=== PATIENT | male | born 1950 | race Two or more races ===

== ENCOUNTER 2018-03-28 20:49 | Inpatient (IN) | payer MEDICARE, MEDICAID ==
[~2018-03-28] VITALS: Ht 165.1 cm; Wt 80.3 kg
--- NOTE | 2018-03-28 21:03 | NUR ---
PT BIBRA C/O SYNCOPE, DIZZINESS. PT FAMILY STATES "WAS SITTING ON THE COUCH AND HE PASSED OUT" PT ON MONITOR IN BED 8 WITH FAMILY AT BEDSIDE. PT AOX4. RESP EVEN AND UNLABORED. NAD NOTED. WILL CONTINUE TO MONITOR.
--- NOTE | 2018-03-28 21:24 | NUR ---
PHLEB AT BEDSIDE FOR LABDRAW
[2018-03-28 21:31] LABS: BASOPHILS # (AUTO) 0.1 /CMM (0.0-0.2); WHITE BLOOD COUNT (AUTO) 8.4 K/uL (4.3-11.0)
[2018-03-28 21:34] LABS: BASOPHILS % (AUTO) 1.4 % (0.0-2.0); EOSINOPHILS % (AUTO) 1.1 % (0.0-6.0); HEMATOCRIT 35 % (39-51); HEMOGLOBIN 11.3 g/dL (13.5-17.5); LYMPHOCYTES # (AUTO) 2.1 /CMM (0.8-4.8); LYMPHOCYTES % (AUTO) 24.8 % (20.0-44.0); MEAN CORPUSCULAR HGB CONC 32 g/dl (31.0-36.0); MEAN CORPUSCULAR VOLUME 66 fL (80-96); MONOCYTES # (AUTO) 0.7 /CMM (0.1-1.30); MONOCYTES % (AUTO) 8.5 % (2.0-12.0); NEUTROPHILS # (AUTO) 5.4 /CMM (1.8-8.9); NEUTROPHILS % (AUTO) 64.2 % (43.0-81.0); PLATELET COUNT (AUTO) 188 /CMM (150-450); RED BLOOD CELL COUNT(AUTO) 5.31 MIL/uL (4.5-6.0)
[2018-03-28 21:41] LABS: CALCIUM, SERUM 8.9 mg/dL (8.5-10.1); CARBON DIOXIDE 25 mmol/L (21-32); CHLORIDE 103 mmol/L (98-107); GLUCOSE 146 mg/dL (74-106); POTASSIUM 3.7 mmol/L (3.5-5.1); SODIUM SERUM 137 mmol/L (136-145); UREA NITROGEN, BLOOD 16 mg/dL (7-18)
--- NOTE | 2018-03-28 22:16 | NUR ---
FAMILY AT BEDSIDE
[2018-03-28] MEDS ORDERED: MECLIZINE HCL 12.5 MG TABLET ONE (22:29)
[2018-03-28] MEDS ORDERED: HYDROMORPHONE INJ 0.5 MG/0.5 ML SYRINGE ONE (22:29)
[2018-03-28] MEDS ORDERED: ONDANSETRON HCL/PF 4 MG/2 ML VIAL ONE (22:29)
[2018-03-28] MEDS ORDERED: HYDROMORPHONE INJ 2 MG/ML DISP.SYRIN IV ONE (22:30)
[2018-03-28] MEDS ORDERED: MECLIZINE HCL 12.5 MG TABLET PO ONE (22:30)
[2018-03-28] MEDS ORDERED: IV NS 0.9% 1,000 ML BAG IV ONE (22:30)
[2018-03-28] MEDS ORDERED: ONDANSETRON HCL/PF 4 MG/2 ML VIAL IVP ONE (22:30)
[2018-03-28 23:04] LABS: BASOPHILS % (MANUAL) 1 % (0.0-2.0); EOSINOPHILS % (MANUAL) 1 % (0-4); LYMPHOCYTES % (MANUAL) 34 % (16-48); MONOCYTES % (MANUAL) 4 % (0-11.0); NEUTROPHILS % (MANUAL) 60 (42-76)
--- NOTE | 2018-03-28 23:23 | NUR ---
BED 322-1
--- NOTE | 2018-03-28 23:30 | NUR ---
PT TAKEN TO RADIOLOGY VIA BARBARA
[2018-03-29] VITALS (8 sets, daily range): BP systolic 109–156; BP diastolic 60–82
--- NOTE | 2018-03-29 01:04 | NUR ---
REPORT GIVEN TO VANESSA CHRISTIAN FOR LUI
--- NOTE | 2018-03-29 01:33 | NUR ---
FACULTY PHYSICIAN NOTE RECEIVED PT IN STABLE CONDITION FROM ISAAC MENDEZ IN ER. PT ARRIVED VIA GURNEY. A&O X3-4 LATVIAN SPEAKING ONLY, AT BEDSIDE UNDERSTANDS SIMPLE UPPER SORBIAN. PT. SKIN IS INTACT. BELONGINGS ACCOUNTED AND SIGNED FOR. IV IN RAC PATENT AND INTACT INFUSING IVF ADEQUATELY. SAFETY PRECAUTIONS IN PLACE: BED, LOW-LOCKED POSITION, UPPER RAILS UP, BED ALARM ON AND CALL LIGHT WITHIN REACH. WILL CONT TO MONITOR.
[2018-03-29] MEDS ORDERED: ENOXAPARIN SODIUM 40 MG/0.4 ML DISP.SYRIN SQ SCH ×2 (02:30→21:00)
[2018-03-29] MEDS ORDERED: MAGNESIUM HYDROXIDE 30 ML UDC PO PRN (02:30)
[2018-03-29] MEDS ORDERED: ZOLPIDEM TARTRATE 5 MG TABLET PO PRN (02:30)
[2018-03-29] MEDS ORDERED: IV NS 0.9% 1,000 ML IV PRN (02:30)
[2018-03-29] MEDS ORDERED: ONDANSETRON HCL/PF 4 MG/2 ML VIAL IVP PRN (02:30)
[2018-03-29] MEDS ORDERED: HYDROCODONE/APAP 5/325MG 1 EACH TABLET PO PRN (02:30)
[2018-03-29] MEDS ORDERED: ACETAMINOPHEN 325 MG TABLET PO PRN (02:30)
[2018-03-29] MEDS ORDERED: Z GUARD REMEDY 2 OZ OINT TP PRN (02:30)
--- NOTE | 2018-03-29 06:18 | NUR ---
ROLLER SKATER NOTE PT IN STABLE CONDITION A&O X3-4 ESTONIAN SPEAKING ONLY, AT BEDSIDE UNDERSTANDS SIMPLE BULGARIAN. RAC PATENT AND INTACT INFUSING IVF ADEQUATELY. SAFETY PRECAUTIONS IN PLACE: BED, LOW-LOCKED POSITION, UPPER RAILS UP, BED ALARM ON AND CALL LIGHT WITHIN REACH. WILL CONT TO MONITOR AND ENDORSE TO NEXT SHIFT FOR LUI.
[2018-03-29 07:22] LABS: BASOPHILS # (AUTO) 0.1 /CMM (0.0-0.2); BASOPHILS % (AUTO) 0.7 % (0.0-2.0); EOSINOPHILS % (AUTO) 1.1 % (0.0-6.0); HEMATOCRIT 35 % (39-51); HEMOGLOBIN 11.1 g/dL (13.5-17.5); LYMPHOCYTES # (AUTO) 2.3 /CMM (0.8-4.8); LYMPHOCYTES % (AUTO) 29.1 % (20.0-44.0); MEAN CORPUSCULAR HGB CONC 32 g/dl (31.0-36.0); MEAN CORPUSCULAR VOLUME 66 fL (80-96); MONOCYTES # (AUTO) 0.8 /CMM (0.1-1.30); MONOCYTES % (AUTO) 10.3 % (2.0-12.0); NEUTROPHILS # (AUTO) 4.5 /CMM (1.8-8.9); NEUTROPHILS % (AUTO) 58.8 % (43.0-81.0); PLATELET COUNT (AUTO) 178 /CMM (150-450); RED BLOOD CELL COUNT(AUTO) 5.24 MIL/uL (4.5-6.0); WHITE BLOOD COUNT (AUTO) 7.7 K/uL (4.3-11.0)
[2018-03-29 07:44] LABS: CALCIUM, SERUM 8.8 mg/dL (8.5-10.1); CREATININE 0.9 mg/dL (0.6-1.3); MAGNESIUM 2.1 mg/dL (1.8-2.4); PHOSPHORUS 3.3 mg/dL (2.5-4.9); POTASSIUM 3.8 mmol/L (3.5-5.1)
[2018-03-29 08:01] LABS: IRON, SERUM 59 ug/dl (50-175); TOTAL IRON BINDING CAPACITY 245 ug/dl (250-450)
--- NOTE | 2018-03-29 08:01 | NUR ---
RN INITAL NOTES PT AWAKE AND ALERT WITH NAD. DENIES PAIN AND NO SOB. PT HAS NO SYNCOPAL EPISODES AT THIS TIME. SINUS SMITH ON THE MONITOR HR=47. IVF INFUSING WELL. AT BS AND SAFETY ENSURED. WILL MONITOR.
[2018-03-29] MEDS ORDERED: ATOR10TA PO (08:10)
[2018-03-29] MEDS ORDERED: LISI2.5T2 PO (08:10)
[2018-03-29] MEDS ORDERED: ASPI-1152 PO (08:10)
[2018-03-29] MEDS ORDERED: TAMS-12 PO (08:10)
--- NOTE | 2018-03-29 15:45 | NUR ---
rn notes pt seen by dr donnell sunshine with discharge to home order. no syncopal episodes noted; no c/o pain made. pt ambulated with steady gait; no dizziness. all discharge instructions given to pts including appt for f/up with endocrinology; verbalized understanding. iv access removed, no bleeding noted.
--- NOTE | 2018-03-29 16:10 | NUR ---
rn notes discharged pt from unit via wheelchair in stable condition accompanied by . tele box returned to maria g.
== END 2018-03-29 16:00 | disposition home or self-care (01) | DRG 312 ==
LOC: ER 20:51 → TELE 23:51
PROVIDERS: ADMIT Nurse Practitioner Acute Care
DX: R55 Syncope and collapse (principal); E78.5 Hyperlipidemia, unspecified; I10 Essential (primary) hypertension; D63.8 Anemia in other chronic diseases classified elsewhere; M54.40 Lumbago with sciatica, unspecified side
CPT/HCPCS: 36415; 70450-TC; 71045-TC; 80048-TC; 80061-TC; 82728-TC; 83540-TC; 83735-TC; 84100-TC; 84439-TC; 84484-TC; 85025-TC; 85730-TC; 87081-TC; 93307-TC; 93880-TC; G0378; J1650; J2405; J7030; J8597; L0172